=== PATIENT | female | born 1930 | race Caucasian/White ===

== ENCOUNTER 2017-12-09 09:19 | Inpatient (IN) | payer MEDICARE, OTHER ==
[2017-12-09 10:29] LABS: ADD MAN DIFF? NO
[2017-12-09 10:33] LABS: BASOPHIL # 0.1 10^3/ul (0.0-0.1); BASOPHILS % 0.8 % (0.0-2.0); EOSINOPHILS # 0.2 10^3/ul (0.0-0.5); EOSINOPHILS % 2.2 % (0.0-7.0); HEMOGLOBIN 12.6 g/dl (12.0-16.0); LYMPHOCYTES # 2.6 10^3/ul (0.8-2.9); LYMPHOCYTES % 26.8 % (15.0-51.0); MEAN CORPUSCULAR HEMOGLOBIN 28.8 pg (29.0-33.0); MEAN CORPUSCULAR HGB CONC 31.5 g/dl (32.0-37.0); MEAN CORPUSCULAR VOLUME 91.3 fl (82.0-101.0); MEAN PLATELET VOLUME 10.5 fl (7.4-10.4); MONOCYTE # 0.7 10^3/ul (0.3-0.9); MONOCYTES % 7.4 % (0.0-11.0); NEUTROPHIL # 5.8 10^3/ul (1.6-7.5); NEUTROPHILS % 60.4 % (39.0-77.0); PLATELET COUNT 134 10^3/UL (140-415); RED BLOOD COUNT 4.38 10^6/ul (4.20-5.40); RED CELL DISTRIBUTION WIDTH 17.5 % (11.5-14.5)
[2017-12-09 10:33] LABS: WHITE BLOOD COUNT 9.6 10^3/ul (4.8-10.8)
[2017-12-09 10:49] LABS: LACTIC ACID 1.3 mmol/L (0.5-2.0)
[2017-12-09 10:50] LABS: ALANINE AMINOTRANSFERASE 14 IU/L (13-69); ALBUMIN 3.5 g/dl (3.3-4.9); ALBUMIN/GLOBULIN RATIO 0.79; ALKALINE PHOSPHATASE 97 IU/L (42-121); ANION GAP 25 (8-16); ASPARTATE AMINO TRANSFERASE 22 IU/L (15-46); BLOOD UREA NITROGEN 45 mg/dl (7-20); CALCIUM 8.7 mg/dl (8.4-10.2); CARBON DIOXIDE 24 mmol/L (21-31); CHLORIDE 95 mmol/L (97-110); CREATININE 4.71 mg/dl (0.44-1.00); GLUCOSE 84 mg/dl (70-220); POTASSIUM 5.6 mmol/L (3.5-5.1); SODIUM 138 mmol/L (135-144); TOTAL PROTEIN 7.9 g/dl (6.1-8.1)
[2017-12-09 10:51] LABS: INR 1.11; PROTIME 14.5 Sec (11.9-14.9); PT RATIO 1.1
[2017-12-09 10:57] LABS: ADD UMIC YES; UR ASCORBIC ACID NEGATIVE (NEGATIVE); UR BACTERIA MANY /HPF (NONE SEEN); UR BILIRUBIN (Dip) NEGATIVE (NEGATIVE); UR BLOOD (Dip) 2+ mg/dL (NEGATIVE); UR CLARITY TURBID (CLEAR); UR COLOR YELLOW (YELLOW); UR GLUCOSE (Dip) NEGATIVE (NEGATIVE); UR KETONES (Dip) NEGATIVE (NEGATIVE); UR LEUKOCYTE ESTERASE (Dip) 3+ Leu/ul (NEGATIVE); UR NITRITE (Dip) NEGATIVE (NEGATIVE); UR RBC 37 /HPF (0-5); UR RENAL EPITHELIAL CELL FEW /HPF (NONE SEEN); UR SPECIFIC GRAVITY (Dip) 1.014 (1.003-1.030); UR TOTAL PROTEIN (Dip) 2+ mg/dl (NEGATIVE); UR UROBILINOGEN (Dip) NEGATIVE (NEGATIVE); UR WBC > 182 /HPF (0-5)
[2017-12-09 10:58] LABS: PARTIAL THROMBOPLASTIN TIME 32.9 Sec (25.0-35.0)
[2017-12-09 11:01] LABS: TROPONIN-I < 0.012 ng/ml (0.00-0.12)
[2017-12-09] MEDS: CEFEPIME 2GM/50 ML (PMX) 50 ML IVPB (11:17)
[2017-12-09] MEDS: SODIUM CHLORIDE 0.9% 1L BAG IV* (11:17)
[2017-12-09] MEDS ORDERED: ONDANSETRON 4 MG INJ IV ×2 (12:00→17:00)
[2017-12-09] MEDS ORDERED: ACETAMINOPHEN 325 MG TAB PO ×3 (12:00→17:00)
[2017-12-09] MEDS: CEFTRIAXONE 1 GM/50 ML (PMX) 50 ML IVPB (12:36)
[2017-12-09] MEDS: VANCOMYCIN 1 GM (PMX) 250 ML IVPB (13:06)
[2017-12-09] MEDS: LORAZEPAM 2 MG INJ IV (14:54)
[2017-12-09 14:59] LABS: LACTIC ACID 1.1 mmol/L (0.5-2.0)
[2017-12-09] MEDS ORDERED: DEXTROSE 50% 50 ML SYRINGE (16:04)
[2017-12-09] MEDS: DEXTROSE 50% 50 ML SYRINGE IV (16:11)
[2017-12-09] MEDS ORDERED: MAGNESIUM HYDROXIDE 30ML CUP PO (17:00)
[2017-12-09] MEDS ORDERED: HYDROCORTISONE 25 MG SUPP PR (17:00)
[2017-12-09] MEDS ORDERED: NACL 0.9% 3 ML SYG IV (17:00)
[2017-12-09] MEDS ORDERED: DOCUSATE SODIUM 100 MG CAP PO (17:00)
[2017-12-09] MEDS ORDERED: HYDROCODONE/APAP (5/325) TAB PO (17:00)
[2017-12-09] MEDS: INSULIN ASPART [NOVOLOG] 3 ML PEN SC ×2 (17:23→21:00)
[2017-12-09] MEDS ORDERED: GLUCAGON 1 MG INJ IM (17:30)
[2017-12-09] MEDS: [UNRECOGNIZED DRUG - REMARK] XX (17:30)
[2017-12-09] MEDS ORDERED: GLUCOSE GEL 15 GRAM TUBE PO ×2 (17:30)
[2017-12-09] MEDS ORDERED: DEXTROSE 50% 50 ML SYRINGE IV ×2 (17:30)
[2017-12-09 20:04] LABS: LACTIC ACID 0.9 mmol/L (0.5-2.0)
[2017-12-09] MEDS: MEROPENEM 1 GM/50ML(PMX) 50 ML IVPB (20:34)
[2017-12-09] MEDS: SOTALOL 80 MG TAB PO (21:00)
[2017-12-09] MEDS: morphine 2 MG INJ IV (22:04)
[2017-12-09] MEDS: DEXTROSE 5%-0.9% NACL 1,000 ML IV (22:05)
[2017-12-09] MEDS: HEPARIN 5,000 UNIT/0.5 ML VIAL SC (22:15)
[2017-12-09] MEDS: GLUCOSE GEL 15 GRAM TUBE BUCCAL ×2 (22:19→23:04)
[2017-12-09] MEDS: DEXTROSE 10% 1,000 ML IV (23:00)
[2017-12-09] MEDS: ZOLPIDEM 5 MG TAB PO (23:04)
[2017-12-10] MEDS: ACCU-CHEK XX (00:42)
[2017-12-10] MEDS: [UNRECOGNIZED DRUG - REMARK] XX ×2 (00:42→09:30)
[2017-12-10 02:04] LABS: HEPATITIS B SURFACE ANTIGEN NEGATIVE (NEGATIVE)
[2017-12-10 02:22] LABS: HEPATITIS B SURFACE ANTIBODY POSITIVE (NEGATIVE)
[2017-12-10] MEDS: PANTOPRAZOLE (EC) 40 MG TAB PO (05:37)
[2017-12-10] MEDS: INSULIN ASPART [NOVOLOG] 3 ML PEN SC ×4 (08:15→20:38)
[2017-12-10 08:27] LABS: ADD MAN DIFF? NO
[2017-12-10] MEDS: LEVOTHYROXINE 75 MCG TAB PO ×2 (08:39→09:00)
[2017-12-10] MEDS: FOLIC ACID 1 MG TAB PO ×2 (08:39→09:00)
[2017-12-10] MEDS: DOCUSATE SODIUM 100 MG CAP PO ×2 (08:39→09:00)
[2017-12-10] MEDS: CHOLECALCIFEROL 1,000 UNIT TAB PO ×2 (08:39→09:00)
[2017-12-10] MEDS: AMLODIPINE 5 MG TAB PO ×2 (08:40→09:00)
[2017-12-10] MEDS: MULTIVIT/CA CARB/B CMPLX/FA TAB PO ×2 (08:40→09:00)
[2017-12-10] MEDS: ASPIRIN 81 MG TAB PO ×2 (08:40→09:00)
[2017-12-10] MEDS: LIDOCAINE 5% PATCH TD (08:41)
[2017-12-10] MEDS: SOTALOL 80 MG TAB PO ×3 (08:42→20:36)
[2017-12-10 08:51] LABS: ALANINE AMINOTRANSFERASE 16 IU/L (13-69); ALBUMIN/GLOBULIN RATIO 0.76; ALKALINE PHOSPHATASE 82 IU/L (42-121); ANION GAP 17 (8-16); ASPARTATE AMINO TRANSFERASE 19 IU/L (15-46); BILIRUBIN,INDIRECT 0.1 mg/dl (0-1.1); BILIRUBIN,TOTAL 0.1 mg/dl (0.2-1.3); BLOOD UREA NITROGEN 21 mg/dl (7-20); CARBON DIOXIDE 25 mmol/L (21-31); CHLORIDE 101 mmol/L (97-110); GLUCOSE 84 mg/dl (70-220); MAGNESIUM 1.7 mg/dl (1.7-2.5); PHOSPHORUS 2.7 mg/dl (2.5-4.9); POTASSIUM 3.8 mmol/L (3.5-5.1); SODIUM 139 mmol/L (135-144); TOTAL PROTEIN 6.9 g/dl (6.1-8.1)
[2017-12-10] MEDS: HEPARIN 5,000 UNIT/0.5 ML VIAL SC ×2 (08:52→20:38)
[2017-12-10 08:58] LABS: HEMOGLOBIN A1C 5.2 % (0-5.9)
[2017-12-10 09:31] LABS: ABNORMAL IP MESSAGE 1; BASOPHIL # 0.1 10^3/ul (0.0-0.1); BASOPHILS % 0.8 % (0.0-2.0); EOSINOPHILS # 0.2 10^3/ul (0.0-0.5); EOSINOPHILS % 1.8 % (0.0-7.0); HEMATOCRIT 35.5 % (37.0-47.0); HEMOGLOBIN 11.4 g/dl (12.0-16.0); LYMPHOCYTES # 1.9 10^3/ul (0.8-2.9); LYMPHOCYTES % 21.4 % (15.0-51.0); MEAN CORPUSCULAR HEMOGLOBIN 29.3 pg (29.0-33.0); MEAN CORPUSCULAR HGB CONC 32.1 g/dl (32.0-37.0); MEAN CORPUSCULAR VOLUME 91.3 fl (82.0-101.0); MEAN PLATELET VOLUME 10.4 fl (7.4-10.4); MONOCYTE # 0.9 10^3/ul (0.3-0.9); MONOCYTES % 10.3 % (0.0-11.0); NEUTROPHIL # 5.7 10^3/ul (1.6-7.5); NEUTROPHILS % 64.2 % (39.0-77.0); PLATELET COUNT 90 10^3/UL (140-415); RED BLOOD COUNT 3.89 10^6/ul (4.20-5.40); RED CELL DISTRIBUTION WIDTH 17.7 % (11.5-14.5)
[2017-12-10 09:31] LABS: WHITE BLOOD COUNT 8.9 10^3/ul (4.8-10.8)
[2017-12-10 09:32] LABS: POSITIVE DIFF @See below
[2017-12-10] MEDS ORDERED: hydrALAzine 20 MG INJ IV (10:30)
[2017-12-10] MEDS ORDERED: SODIUM CHLORIDE 0.9% 1L BAG IV (17:00)
[2017-12-10] MEDS: MEROPENEM 1 GM/50ML(PMX) 50 ML IVPB (17:32)
[2017-12-10] MEDS: DEXTROSE 10% 1,000 ML IV (22:50)
[2017-12-11] MEDS: ACCU-CHEK XX (02:00)
[2017-12-11] MEDS: PANTOPRAZOLE (EC) 40 MG TAB PO (05:26)
[2017-12-11 06:19] LABS: ADD MAN DIFF? NO
[2017-12-11 06:56] LABS: ABNORMAL IP MESSAGE 1; BASOPHILS % 0.6 % (0.0-2.0); EOSINOPHILS # 0.1 10^3/ul (0.0-0.5); HEMATOCRIT 39.6 % (37.0-47.0); HEMOGLOBIN 12.5 g/dl (12.0-16.0); LYMPHOCYTES % 30.3 % (15.0-51.0); MEAN CORPUSCULAR HEMOGLOBIN 28.9 pg (29.0-33.0); MEAN CORPUSCULAR HGB CONC 31.6 g/dl (32.0-37.0); MEAN CORPUSCULAR VOLUME 91.7 fl (82.0-101.0); MEAN PLATELET VOLUME 10.2 fl (7.4-10.4); MONOCYTE # 0.6 10^3/ul (0.3-0.9); MONOCYTES % 8.6 % (0.0-11.0); NEUTROPHIL # 3.8 10^3/ul (1.6-7.5); NEUTROPHILS % 57.3 % (39.0-77.0); PLATELET COUNT 95 10^3/UL (140-415); RED BLOOD COUNT 4.32 10^6/ul (4.20-5.40); RED CELL DISTRIBUTION WIDTH 17.5 % (11.5-14.5)
[2017-12-11 06:56] LABS: WHITE BLOOD COUNT 6.6 10^3/ul (4.8-10.8)
[2017-12-11 07:14] LABS: AMMONIA 15 umol/l (9-30)
[2017-12-11 07:20] LABS: POSITIVE DIFF @See below
[2017-12-11 07:27] LABS: PHOSPHORUS 3.7 mg/dl (2.5-4.9)
[2017-12-11 07:59] LABS: ANION GAP 16 (8-16); BLOOD UREA NITROGEN 23 mg/dl (7-20); CALCIUM 8.1 mg/dl (8.4-10.2); CARBON DIOXIDE 24 mmol/L (21-31); CHLORIDE 103 mmol/L (97-110); CREATININE 3.47 mg/dl (0.44-1.00); GLUCOSE 90 mg/dl (70-220); POTASSIUM 4.5 mmol/L (3.5-5.1); SODIUM 138 mmol/L (135-144)
[2017-12-11] MEDS: INSULIN ASPART [NOVOLOG] 3 ML PEN SC ×4 (08:09→21:00)
[2017-12-11] MEDS: FOLIC ACID 1 MG TAB PO (09:17)
[2017-12-11] MEDS: LIDOCAINE 5% PATCH TD (09:17)
[2017-12-11] MEDS: CHOLECALCIFEROL 1,000 UNIT TAB PO (09:17)
[2017-12-11] MEDS: ASPIRIN 81 MG TAB PO (09:17)
[2017-12-11] MEDS: DOCUSATE SODIUM 100 MG CAP PO (09:18)
[2017-12-11] MEDS: LEVOTHYROXINE 75 MCG TAB PO (09:18)
[2017-12-11] MEDS: SOTALOL 80 MG TAB PO ×2 (09:18→21:38)
[2017-12-11] MEDS: AMLODIPINE 5 MG TAB PO (09:27)
[2017-12-11] MEDS: MULTIVIT/CA CARB/B CMPLX/FA TAB PO (09:27)
[2017-12-11] MEDS: HEPARIN 5,000 UNIT/0.5 ML VIAL SC ×2 (10:44→21:47)
[2017-12-11] MEDS: ALBUMIN HUMAN 25% 50 ML IV (17:47)
[2017-12-11] MEDS: MEROPENEM 1 GM/50ML(PMX) 50 ML IVPB (18:17)
[2017-12-11] MEDS: DEXTROSE 10% 1,000 ML IV (23:00)
[2017-12-12] MEDS: INSULIN ASPART [NOVOLOG] 3 ML PEN SC ×6 (01:00→20:42)
[2017-12-12] MEDS: morphine 2 MG INJ IV (01:05)
[2017-12-12] MEDS: PANTOPRAZOLE (EC) 40 MG TAB PO (06:12)
[2017-12-12 06:22] LABS: ADD MAN DIFF? NO
[2017-12-12 06:40] LABS: WHITE BLOOD COUNT 8.2 10^3/ul (4.8-10.8)
[2017-12-12 06:40] LABS: BASOPHIL # 0.1 10^3/ul (0.0-0.1); BASOPHILS % 0.6 % (0.0-2.0); EOSINOPHILS # 0.2 10^3/ul (0.0-0.5); EOSINOPHILS % 1.8 % (0.0-7.0); HEMATOCRIT 36.3 % (37.0-47.0); HEMOGLOBIN 11.4 g/dl (12.0-16.0); LYMPHOCYTES # 1.5 10^3/ul (0.8-2.9); LYMPHOCYTES % 17.9 % (15.0-51.0); MEAN CORPUSCULAR HEMOGLOBIN 29.2 pg (29.0-33.0); MEAN CORPUSCULAR HGB CONC 31.4 g/dl (32.0-37.0); MEAN CORPUSCULAR VOLUME 93.1 fl (82.0-101.0); MONOCYTE # 0.6 10^3/ul (0.3-0.9); MONOCYTES % 7.8 % (0.0-11.0); NEUTROPHIL # 5.8 10^3/ul (1.6-7.5); PLATELET COUNT 101 10^3/UL (140-415)
[2017-12-12 06:59] LABS: ANION GAP 13 (8-16); BLOOD UREA NITROGEN 10 mg/dl (7-20); CALCIUM 8.3 mg/dl (8.4-10.2); CARBON DIOXIDE 29 mmol/L (21-31); CHLORIDE 107 mmol/L (97-110); CREATININE 2.19 mg/dl (0.44-1.00); GLUCOSE 156 mg/dl (70-220); POTASSIUM 3.7 mmol/L (3.5-5.1); SODIUM 145 mmol/L (135-144)
[2017-12-12 07:04] LABS: PHOSPHORUS 2.8 mg/dl (2.5-4.9)
[2017-12-12 07:04] LABS: MAGNESIUM 1.7 mg/dl (1.7-2.5)
[2017-12-12] MEDS: MULTIVIT/CA CARB/B CMPLX/FA TAB PO (09:02)
[2017-12-12] MEDS: SOTALOL 80 MG TAB PO ×2 (09:05→20:42)
[2017-12-12] MEDS: FOLIC ACID 1 MG TAB PO (09:06)
[2017-12-12] MEDS: CHOLECALCIFEROL 1,000 UNIT TAB PO (09:06)
[2017-12-12] MEDS: ASPIRIN 81 MG TAB PO (09:06)
[2017-12-12] MEDS: LEVOTHYROXINE 75 MCG TAB PO (09:07)
[2017-12-12] MEDS: DOCUSATE SODIUM 100 MG CAP PO (09:08)
[2017-12-12] MEDS: AMLODIPINE 5 MG TAB PO (09:12)
[2017-12-12] MEDS: LIDOCAINE 5% PATCH TD (09:19)
[2017-12-12] MEDS: HEPARIN 5,000 UNIT/0.5 ML VIAL SC ×2 (09:27→20:45)
[2017-12-12] MEDS: MEROPENEM 1 GM/50ML(PMX) 50 ML IVPB (17:38)
[2017-12-13] MEDS: INSULIN ASPART [NOVOLOG] 3 ML PEN SC ×6 (01:00→21:00)
[2017-12-13 05:43] LABS: ADD MAN DIFF? NO
[2017-12-13 05:48] LABS: WHITE BLOOD COUNT 8.5 10^3/ul (4.8-10.8)
[2017-12-13 05:48] LABS: BASOPHILS % 0.4 % (0.0-2.0); EOSINOPHILS # 0.2 10^3/ul (0.0-0.5); EOSINOPHILS % 1.8 % (0.0-7.0); HEMOGLOBIN 10.9 g/dl (12.0-16.0); LYMPHOCYTES # 2.4 10^3/ul (0.8-2.9); LYMPHOCYTES % 28.7 % (15.0-51.0); MEAN CORPUSCULAR HEMOGLOBIN 29.1 pg (29.0-33.0); MEAN CORPUSCULAR HGB CONC 31.1 g/dl (32.0-37.0); MEAN CORPUSCULAR VOLUME 93.3 fl (82.0-101.0); MEAN PLATELET VOLUME 10.5 fl (7.4-10.4); MONOCYTE # 0.7 10^3/ul (0.3-0.9); MONOCYTES % 8.2 % (0.0-11.0); NEUTROPHIL # 5.1 10^3/ul (1.6-7.5); NEUTROPHILS % 60.3 % (39.0-77.0); PLATELET COUNT 105 10^3/UL (140-415); RED BLOOD COUNT 3.75 10^6/ul (4.20-5.40); RED CELL DISTRIBUTION WIDTH 18.2 % (11.5-14.5)
[2017-12-13] MEDS: PANTOPRAZOLE (EC) 40 MG TAB PO (05:59)
[2017-12-13 06:10] LABS: PHOSPHORUS 3.6 mg/dl (2.5-4.9)
[2017-12-13 06:10] LABS: MAGNESIUM 1.9 mg/dl (1.7-2.5)
[2017-12-13 06:16] LABS: ANION GAP 12 (8-16); BLOOD UREA NITROGEN 23 mg/dl (7-20); CALCIUM 8.3 mg/dl (8.4-10.2); CARBON DIOXIDE 30 mmol/L (21-31); CHLORIDE 106 mmol/L (97-110); CREATININE 3.14 mg/dl (0.44-1.00); GLUCOSE 119 mg/dl (70-220); POTASSIUM 4.4 mmol/L (3.5-5.1); SODIUM 144 mmol/L (135-144)
[2017-12-13] MEDS: FOLIC ACID 1 MG TAB PO (09:20)
[2017-12-13] MEDS: LEVOTHYROXINE 75 MCG TAB PO (09:23)
[2017-12-13] MEDS: CHOLECALCIFEROL 1,000 UNIT TAB PO (09:23)
[2017-12-13] MEDS: AMLODIPINE 5 MG TAB PO (09:23)
[2017-12-13] MEDS: ASPIRIN 81 MG TAB PO (09:24)
[2017-12-13] MEDS: SOTALOL 80 MG TAB PO ×2 (09:24→21:00)
[2017-12-13] MEDS: MULTIVIT/CA CARB/B CMPLX/FA TAB PO (09:25)
[2017-12-13] MEDS: DOCUSATE SODIUM 100 MG CAP PO (09:25)
[2017-12-13] MEDS: LIDOCAINE 5% PATCH TD (09:26)
[2017-12-13] MEDS: HEPARIN 5,000 UNIT/0.5 ML VIAL SC ×2 (09:29→21:02)
[2017-12-13] MEDS: MEROPENEM 1 GM/50ML(PMX) 50 ML IVPB (18:00)
[2017-12-14] MEDS: INSULIN ASPART [NOVOLOG] 3 ML PEN SC ×6 (01:00→21:00)
[2017-12-14] MEDS: PANTOPRAZOLE (EC) 40 MG TAB PO (05:47)
[2017-12-14 06:10] LABS: ADD MAN DIFF? NO
[2017-12-14 06:14] LABS: WHITE BLOOD COUNT 7.6 10^3/ul (4.8-10.8)
[2017-12-14 06:14] LABS: BASOPHILS % 0.4 % (0.0-2.0); EOSINOPHILS # 0.2 10^3/ul (0.0-0.5); EOSINOPHILS % 2.8 % (0.0-7.0); HEMATOCRIT 34.5 % (37.0-47.0); HEMOGLOBIN 10.8 g/dl (12.0-16.0); LYMPHOCYTES # 2.4 10^3/ul (0.8-2.9); LYMPHOCYTES % 31.8 % (15.0-51.0); MEAN CORPUSCULAR HGB CONC 31.3 g/dl (32.0-37.0); MEAN CORPUSCULAR VOLUME 92.7 fl (82.0-101.0); MEAN PLATELET VOLUME 10.1 fl (7.4-10.4); MONOCYTE # 0.6 10^3/ul (0.3-0.9); MONOCYTES % 8.1 % (0.0-11.0); NEUTROPHIL # 4.3 10^3/ul (1.6-7.5); NEUTROPHILS % 56.2 % (39.0-77.0); PLATELET COUNT 104 10^3/UL (140-415); RED BLOOD COUNT 3.72 10^6/ul (4.20-5.40); RED CELL DISTRIBUTION WIDTH 18.1 % (11.5-14.5)
[2017-12-14 06:38] LABS: PHOSPHORUS 3.8 mg/dl (2.5-4.9)
[2017-12-14 06:38] LABS: ALANINE AMINOTRANSFERASE 16 IU/L (13-69); ALBUMIN 2.7 g/dl (3.3-4.9); ALBUMIN/GLOBULIN RATIO 0.75; ALKALINE PHOSPHATASE 74 IU/L (42-121); ANION GAP 16 (8-16); ASPARTATE AMINO TRANSFERASE 18 IU/L (15-46); BILIRUBIN,INDIRECT 0.1 mg/dl (0-1.1); BILIRUBIN,TOTAL 0.1 mg/dl (0.2-1.3); BLOOD UREA NITROGEN 35 mg/dl (7-20); CALCIUM 8.1 mg/dl (8.4-10.2); CARBON DIOXIDE 27 mmol/L (21-31); CHLORIDE 102 mmol/L (97-110); CREATININE 3.63 mg/dl (0.44-1.00); GLUCOSE 85 mg/dl (70-220); MAGNESIUM 1.9 mg/dl (1.7-2.5); POTASSIUM 4.5 mmol/L (3.5-5.1); SODIUM 140 mmol/L (135-144); TOTAL PROTEIN 6.3 g/dl (6.1-8.1)
[2017-12-14] MEDS: MULTIVIT/CA CARB/B CMPLX/FA TAB PO (08:58)
[2017-12-14] MEDS: ASPIRIN 81 MG TAB PO (08:58)
[2017-12-14] MEDS: DOCUSATE SODIUM 100 MG CAP PO (08:58)
[2017-12-14] MEDS: LEVOTHYROXINE 75 MCG TAB PO (08:58)
[2017-12-14] MEDS: CHOLECALCIFEROL 1,000 UNIT TAB PO (08:58)
[2017-12-14] MEDS: FOLIC ACID 1 MG TAB PO (08:58)
[2017-12-14] MEDS: SOTALOL 80 MG TAB PO ×2 (09:00→21:36)
[2017-12-14] MEDS: AMLODIPINE 5 MG TAB PO (09:00)
[2017-12-14] MEDS: HEPARIN 5,000 UNIT/0.5 ML VIAL SC ×2 (09:03→21:37)
[2017-12-14] MEDS: LIDOCAINE 5% PATCH TD (09:05)
[2017-12-14] MEDS: ALBUMIN HUMAN 25% 50 ML IV (18:00)
[2017-12-14] MEDS: MEROPENEM 1 GM/50ML(PMX) 50 ML IVPB (21:32)
[2017-12-14] MEDS: HYDROCODONE/APAP (5/325) TAB PO (21:34)
[2017-12-15] MEDS: INSULIN ASPART [NOVOLOG] 3 ML PEN SC ×5 (01:00→17:00)
[2017-12-15] MEDS: PANTOPRAZOLE (EC) 40 MG TAB PO (06:02)
[2017-12-15] MEDS: HYDROCODONE/APAP (5/325) TAB PO (06:02)
[2017-12-15 06:17] LABS: ADD MAN DIFF? NO
[2017-12-15 06:23] LABS: WHITE BLOOD COUNT 7.1 10^3/ul (4.8-10.8)
[2017-12-15 06:23] LABS: BASOPHIL # 0.1 10^3/ul (0.0-0.1); BASOPHILS % 0.7 % (0.0-2.0); EOSINOPHILS # 0.2 10^3/ul (0.0-0.5); HEMATOCRIT 36.7 % (37.0-47.0); HEMOGLOBIN 11.3 g/dl (12.0-16.0); LYMPHOCYTES # 2.6 10^3/ul (0.8-2.9); LYMPHOCYTES % 37.4 % (15.0-51.0); MEAN CORPUSCULAR HEMOGLOBIN 28.9 pg (29.0-33.0); MEAN CORPUSCULAR HGB CONC 30.8 g/dl (32.0-37.0); MEAN CORPUSCULAR VOLUME 93.9 fl (82.0-101.0); MEAN PLATELET VOLUME 10.3 fl (7.4-10.4); MONOCYTE # 0.6 10^3/ul (0.3-0.9); MONOCYTES % 8.8 % (0.0-11.0); NEUTROPHIL # 3.5 10^3/ul (1.6-7.5); NEUTROPHILS % 49.5 % (39.0-77.0); PLATELET COUNT 112 10^3/UL (140-415); RED BLOOD COUNT 3.91 10^6/ul (4.20-5.40); RED CELL DISTRIBUTION WIDTH 17.9 % (11.5-14.5)
[2017-12-15 06:43] LABS: PHOSPHORUS 3.2 mg/dl (2.5-4.9)
[2017-12-15 06:43] LABS: MAGNESIUM 1.8 mg/dl (1.7-2.5)
[2017-12-15 06:51] LABS: ANION GAP 15 (8-16); BLOOD UREA NITROGEN 16 mg/dl (7-20); CALCIUM 8.2 mg/dl (8.4-10.2); CARBON DIOXIDE 29 mmol/L (21-31); CHLORIDE 101 mmol/L (97-110); CREATININE 2.51 mg/dl (0.44-1.00); GLUCOSE 83 mg/dl (70-220); POTASSIUM 4.3 mmol/L (3.5-5.1); SODIUM 141 mmol/L (135-144)
[2017-12-15] MEDS: ASPIRIN 81 MG TAB PO (08:15)
[2017-12-15] MEDS: FOLIC ACID 1 MG TAB PO (08:16)
[2017-12-15] MEDS: MULTIVIT/CA CARB/B CMPLX/FA TAB PO (08:16)
[2017-12-15] MEDS: LEVOTHYROXINE 75 MCG TAB PO (08:16)
[2017-12-15] MEDS: SOTALOL 80 MG TAB PO (08:16)
[2017-12-15] MEDS: CHOLECALCIFEROL 1,000 UNIT TAB PO (08:16)
[2017-12-15] MEDS: DOCUSATE SODIUM 100 MG CAP PO (08:16)
[2017-12-15] MEDS: AMLODIPINE 5 MG TAB PO (08:16)
[2017-12-15] MEDS: LIDOCAINE 5% PATCH TD (08:29)
[2017-12-15] MEDS: HEPARIN 5,000 UNIT/0.5 ML VIAL SC (08:45)
[2017-12-15] MEDS: MEROPENEM 1 GM/50ML(PMX) 50 ML IVPB (18:00)
== END 2017-12-15 18:40 | DRG 871 ==
LOC: FTE 09:19 → MS2 11:57
PROC: 5A1D70Z Performance of Urinary Filtration, Intermittent, Less than 6 Hours Per Day (ICD-10-PCS; 2017-12-09)
PROC: 5A1D70Z Performance of Urinary Filtration, Intermittent, Less than 6 Hours Per Day (ICD-10-PCS; 2017-12-10)
PROC: 5A1D70Z Performance of Urinary Filtration, Intermittent, Less than 6 Hours Per Day (ICD-10-PCS; principal; 2017-12-13)
DX: A41.9 Sepsis, unspecified organism (principal); J18.9 Pneumonia, unspecified organism; N18.6 End stage renal disease; G92 Toxic encephalopathy; N39.0 Urinary tract infection, site not specified; I12.0 Hypertensive chronic kidney disease with stage 5 chronic kidney disease or end stage renal disease; I69.351 Hemiplegia and hemiparesis following cerebral infarction affecting right dominant side; E44.1 Mild protein-calorie malnutrition; E11.22 Type 2 diabetes mellitus with diabetic chronic kidney disease; D69.6 Thrombocytopenia, unspecified; I48.2 Chronic atrial fibrillation; E87.5 Hyperkalemia; R13.10 Dysphagia, unspecified; Z78.1 Physical restraint status; F01.50 Vascular dementia, unspecified severity, without behavioral disturbance, psychotic disturbance, mood disturbance, and anxiety; D63.8 Anemia in other chronic diseases classified elsewhere; E03.9 Hypothyroidism, unspecified; D50.9 Iron deficiency anemia, unspecified; Y95 Nosocomial condition; E55.9 Vitamin D deficiency, unspecified; R62.7 Adult failure to thrive; F10.21 Alcohol dependence, in remission; R32 Unspecified urinary incontinence; Z68.22 Body mass index [BMI] 22.0-22.9, adult; Z99.2 Dependence on renal dialysis; Z79.4 Long term (current) use of insulin; Z85.828 Personal history of other malignant neoplasm of skin
CPT/HCPCS: 36415; 70450; 71045; 74176; 80048; 80053; 81001; 82140; 82962; 83036; 83605; 83735; 84100; 84443; 84484; 85025; 85610; 85730; 86706; 87040; 87086; 87340; 90935; 92526; 92610; 93005; 95819; 96374; 96375; 99285-25

== ENCOUNTER 2018-08-10 08:05 | Emergency (ER) | payer MEDICARE, OTHER ==
[2018-08-10] MEDS ORDERED: SOD CHLORIDE 0.9% 500 ML IV (08:15)
== END 2018-08-10 13:04 | disposition expired ==
LOC: E/R 08:05
DX: I46.9 Cardiac arrest, cause unspecified (principal); R40.2432 Glasgow coma scale score 3-8, at arrival to emergency department; R07.9 Chest pain, unspecified; Z79.82 Long term (current) use of aspirin
CPT/HCPCS: 31500; 71045; 93005; 94002; 99291-25